=== PATIENT | female | born 1960 | race Caucasian/White ===

== ENCOUNTER 2017-11-23 14:46 | Observation (INO) ==
[2017-11-23] MEDS ORDERED: predniSONE 20 MG TABLET PO ONE (15:18)
[2017-11-23] MEDS ORDERED: Ipratropium/Albuterol Neb 3 ML IH ONE (15:18)
--- NOTE | 2017-11-23 15:20 | Emergency Department Note ---
Disposition Clinical Impression: Acute exacerbation of chronic obstructive airways disease Disposition: Admitted As Inpatient Condition: Good General Adult HPI - General Chief complaint: ED Shortness of Breath/Dyspnea Stated complaint: MACHELLE-COPD, abd pain, rash in mouth Time Seen by Provider: 11/23/17 15:18 Source: patient Limitations: no limitations - History of Present Illness Pain Scale: 7 - Related Data Home Medications Medication Instructions Recorded Confirmed Albuterol Sulfate [Ventolin Hfa] 2 puff IH Q4H PRN 08/02/17 11/23/17 Aspirin [Lo-Dose Aspirin EC] 81 mg PO DAILY 08/02/17 11/23/17 Atorvastatin [Lipitor] 40 mg PO HS 08/02/17 11/23/17 Benzonatate [Tessalon] 100 mg PO BID PRN 08/02/17 11/23/17 Bifidobacterium Infantis [Align] 4 mg PO DAILY 08/02/17 11/23/17 DULoxetine [Cymbalta] 30 mg PO BID 08/02/17 11/23/17 Fluticasone Propionate Nasal 2 spray NS DAILY 08/02/17 11/23/17 [Flonase] Ibuprofen [Advil] 200 mg PO Q6H PRN 08/02/17 11/23/17 Ipratropium [place] 2 spray NS BID 08/02/17 11/23/17 Ipratropium/Albuterol Neb [Duoneb] 3 ml IH Q6HR PRN 08/02/17 11/23/17 Losartan Potassium [Cozaar] 50 mg PO DAILY 08/02/17 11/23/17 Melatonin 10 mg PO HS 08/02/17 11/23/17 Montelukast [Singulair] 10 mg PO QPM 08/02/17 11/23/17 Omeprazole [PriLOSEC] 40 mg PO DAILY 08/02/17 11/23/17 Polyethylene Glycol 3350 [MiraLAX] 17 gm PO BID PRN 08/02/17 11/23/17 Amitriptyline [Elavil] 50 mg PO HS 11/23/17 11/23/17 Budesonide/Formoterol 160/4.5 2 puff IH BIDR 11/23/17 11/23/17 [Symbicort 160/4.5] Tiotropium [Spiriva] 18 mcg IH 0700 11/23/17 11/23/17 Allergies Allergy/AdvReac Type Severity Reaction Status Date / Time lisinopril AdvReac Cough Verified 11/23/17 15:03 Past Medical History - Past Medical History Medical history: Reports: asthma, COPD, GERD, hyperlipidemia, hypertension, other Surgical history: Reports: , hysterectomy, orthopedic, other Psychiatric history: Reports: depression - Social History Smoking Status: Current every day smoker Smokeless Tobacco Status: No Alcohol use: Reports: occasionally Drug use: Reports: none Physical Exam - General Limitations: no limitations General appearance: alert Course Vital Signs Temperature 98.5 F 11/23/17 15:03 Pulse Rate 118 11/23/17 15:03 Respiratory Rate 20 11/23/17 15:03 Blood Pressure 129/95 11/23/17 15:03 O2 Sat by Pulse Oximetry 96 11/23/17 15:03 Temperature 97.6 F 11/23/17 19:06 Pulse Rate 104 11/23/17 19:06 Respiratory Rate 20 11/23/17 19:06 Blood Pressure 132/83 11/23/17 19:06 O2 Sat by Pulse Oximetry 96 11/23/17 19:06 Oxygen Delivery Oxygen Delivery Non Rebreather Mask Medical Decision Making - Lab Data Result diagrams: 11/23/17 15:57 11/23/17 15:57 Lab Results 11/23/17 11/23/17 11/23/17 Range/Units 15:57 15:57 15:57 WBC 9.1 (4.3-11.1) K/mcL RBC 4.86 (3.82-4.97) M/mcL Hgb 15.1 (11.5-15.4) g/dL Hct 44.0 (35.3-44.9) % MCV 90.5 (83.0-100.0) fL MCH 31.1 (28.0-33.3) pg MCHC 34.3 (31.6-35.5) g/dL RDW 12.9 (11.5-14.5) % Plt Count 251 (140-400) K/mcL MPV 9.1 L (9.4-12.4) fL Immature Gran % 0.2 (0-4) % Seg Neutrophils % 58.5 % Lymphocytes % 33.7 % Monocytes % 6.3 % Eosinophils % 0.9 % Basophils % 0.4 % Neutrophils # 5.3 (1.6-8.9) K/mcL Lymphocytes # 3.1 (0.6-4.6) K/mcL Monocytes # 0.6 (0.0-1.3) K/mcL Eosinophils # 0.1 (0.0-0.6) K/mcL Basophils # 0.0 (0.0-0.2) K/mcL PT (9.4-12.1) Seconds INR Sodium 139 (136-145) mEq/L Potassium 3.0 L (3.5-5.1) mEq/L Chloride 108 H (98-107) mEq/L Carbon Dioxide 23 (23-29) mEq/L BUN 11 (6-20) mg/dL Creatinine 0.74 (0.60-1.20) mg/dL Est GFR ( Amer) > 60 (> 60) Est GFR (Non-Af Amer) > 60 (> 60) BUN/Creatinine Ratio 15 (6-26) Glucose 115 H (70-105) mg/dL Calculated Osmolality 288 (280-300) Calcium 9.1 (8.6-10.3) mg/dL Magnesium (1.6-2.6) mg/dL Total Bilirubin 0.5 (0.3-1.0) mg/dL AST 18 (13-39) Units/L ALT 19 (7-52) Units/L Alkaline Phosphatase 87 (34-104) Units/L Troponin I (< 0.04) ng/mL B-Natriuretic Peptide 12 (Less than 100) pg/mL Serum Total Protein 7.7 (6.4-8.9) g/dL Albumin 4.3 (3.5-5.7) g/dL Globulin 3.4 (2.4-3.5) g/dL Albumin/Globulin Ratio 1.3 (1.1-2.2) 11/23/17 11/23/17 11/23/17 Range/Units 15:57 15:57 15:57 WBC (4.3-11.1) K/mcL RBC (3.82-4.97) M/mcL Hgb (11.5-15.4) g/dL Hct (35.3-44.9) % MCV (83.0-100.0) fL MCH (28.0-33.3) pg MCHC (31.6-35.5) g/dL RDW (11.5-14.5) % Plt Count (140-400) K/mcL MPV (9.4-12.4) fL Immature Gran % (0-4) % Seg Neutrophils % % Lymphocytes % % Monocytes % % Eosinophils % % Basophils % % Neutrophils # (1.6-8.9) K/mcL Lymphocytes # (0.6-4.6) K/mcL Monocytes # (0.0-1.3) K/mcL Eosinophils # (0.0-0.6) K/mcL Basophils # (0.0-0.2) K/mcL PT 11.2 (9.4-12.1) Seconds INR 1.0 Sodium (136-145) mEq/L Potassium (3.5-5.1) mEq/L Chloride (98-107) mEq/L Carbon Dioxide (23-29) mEq/L BUN (6-20) mg/dL Creatinine (0.60-1.20) mg/dL Est GFR ( Amer) (> 60) Est GFR (Non-Af Amer) (> 60) BUN/Creatinine Ratio (6-26) Glucose (70-105) mg/dL Calculated Osmolality (280-300) Calcium (8.6-10.3) mg/dL Magnesium 1.9 (1.6-2.6) mg/dL Total Bilirubin (0.3-1.0) mg/dL AST (13-39) Units/L ALT (7-52) Units/L Alkaline Phosphatase (34-104) Units/L Troponin I < 0.03 (< 0.04) ng/mL B-Natriuretic Peptide (Less than 100) pg/mL Serum Total Protein (6.4-8.9) g/dL Albumin (3.5-5.7) g/dL Globulin (2.4-3.5) g/dL Albumin/Globulin Ratio (1.1-2.2) Attestation Statement - Attestation Attestation: I examined this patient and my medical decision-making was reviewed with the Resident Physician. I agree with the documented findings, disposition and treatment plan as described except to the extent set forth below. [id number] time provided Patient with a known history of COPD presents to emergency department with cough , wheezing, dyspnea. She appears mildly dyspneic at the time exam. Patient seen in conjunction with resident physician Dr. Whitten
--- NOTE | 2017-11-23 15:56 | Emergency Department Note ---
Disposition Clinical Impression: Acute exacerbation of chronic obstructive airways disease Disposition: Admitted As Inpatient Condition: Good Referrals: NONE,PCP [Primary Care Provider] - [facility] [Outside] Forms: ED Satisfaction Letter Time of Disposition: 17:05 General Adult HPI - General Chief complaint: ED Shortness of Breath/Dyspnea Stated complaint: MACHELLE-COPD, abd pain, rash in mouth Time Seen by Provider: 11/23/17 15:18 Source: patient Limitations: no limitations Nursing Notes Reviewed: Yes Vital Signs Reviewed: Yes - History of Present Illness HPI Narrative: Patient is a 57-year-old female with a past medical history of COPD that presents to the emergency department for cough and shortness of breath. She states that this started on November 19. She states that she originally had some diarrhea and vomiting but that has since resolved. She states that she is still having a cough that is productive with yellow thick sputum. She states that she try to see her primary care doctor was unable to be seen so she felt that she should come to the emergency department. She denies having anything like this before. She denies any chest pain at rest. States nothing seems to make her symptoms any better or worse. States that she feels overall weak and tired. She does state that she has some rib pain when she coughs but denies any pain at rest. She denies any chest pain. She describes her pain as lower ribs under the breasts and into the back bilaterally. Patient denies home oxygen use. Pain Scale: 7 - Related Data Home Medications Medication Instructions Recorded Confirmed Albuterol Sulfate [Ventolin Hfa] 2 puff IH Q4H PRN 08/02/17 08/02/17 Aspirin [Lo-Dose Aspirin EC] 81 mg PO DAILY 08/02/17 08/02/17 Atorvastatin [Lipitor] 40 mg PO HS 08/02/17 08/02/17 Benzonatate [Tessalon] 100 mg PO BID PRN 08/02/17 08/02/17 Bifidobacterium Infantis [Align] 4 mg PO DAILY 08/02/17 08/02/17 DULoxetine [Cymbalta] 30 mg PO BID 08/02/17 08/02/17 Fluticasone Propionate Nasal 2 spray NS DAILY 08/02/17 08/02/17 [Flonase] Ibuprofen [Advil] 200 mg PO Q6H PRN 08/02/17 08/02/17 Ipratropium [place] 2 spray NS BID 08/02/17 08/02/17 Ipratropium/Albuterol Neb [Duoneb] 3 ml IH Q6HR PRN 08/02/17 08/02/17 Losartan Potassium [Cozaar] 50 mg PO DAILY 08/02/17 08/02/17 Melatonin 10 mg PO HS 08/02/17 08/02/17 Montelukast [Singulair] 10 mg PO DAILY 08/02/17 08/02/17 Omeprazole [PriLOSEC] 40 mg PO DAILY 08/02/17 08/02/17 Polyethylene Glycol 3350 [MiraLAX] 17 gm PO BID PRN 08/02/17 08/02/17 Amitriptyline [Elavil] 50 mg PO HS 11/23/17 11/23/17 Budesonide/Formoterol 160/4.5 2 puff IH BIDR 11/23/17 11/23/17 [Symbicort 160/4.5] Tiotropium [Spiriva] 18 mcg IH 0700 11/23/17 11/23/17 Allergies Allergy/AdvReac Type Severity Reaction Status Date / Time lisinopril AdvReac Cough Verified 11/23/17 15:03 All systems ED: reviewed and negative except as stated. Constitutional: Reports: fever, weakness Cardiovascular: Reports: other (Bilateral rib pain) Respiratory: Reports: cough, dyspnea, wheezes Gastrointestinal: Reports: abdominal pain. Denies: nausea, vomiting, diarrhea Endocrine: Reports: fatigue Past Medical History - Past Medical History Medical history: Reports: asthma, COPD, GERD, hyperlipidemia, hypertension, other Surgical history: Reports: , hysterectomy, orthopedic, other Psychiatric history: Reports: depression - Social History Smoking Status: Current every day smoker Smokeless Tobacco Status: No Alcohol use: Reports: occasionally Drug use: Reports: none Physical Exam - General Limitations: no limitations General appearance: alert, in no apparent distress - Head Head exam: atraumatic, normocephalic - Eye Eye exam: Present: normal appearance, EOMI - Neck Neck exam: Present: normal inspection, full ROM, trachea midline - Chest Chest inspection: Present: other (Patient had tenderness over the lower ribs bilaterally on the anterior and posterior aspect) - Respiratory Respiratory exam: Present: wheezes (Wheezes bilaterally). Absent: respiratory distress - Cardiovascular Cardiovascular exam: Present: normal rhythm, tachycardia, normal heart sounds, + S1, +S2 - Abdominal Exam Abdominal exam: Present: soft, Non-Tender, normal bowel sounds - Extremities Exam Extremities exam: Present: normal inspection, full ROM, other (Did not appreciate any edema in the lower extremities). Absent: tenderness - Back Exam Back exam: Present: other (Patient has rib pain on the lower ribs posteriorly bilaterally) - Neurological Exam Neurological exam: Present: alert, oriented X3 - Psychiatric Psychiatric exam: Present: normal affect, normal mood - Skin Skin exam: Present: warm, dry, intact Course Vital Signs Temperature 98.5 F 11/23/17 15:03 Pulse Rate 118 11/23/17 15:03 Respiratory Rate 20 11/23/17 15:03 Blood Pressure 129/95 11/23/17 15:03 O2 Sat by Pulse Oximetry 96 11/23/17 15:03 Temperature 98.5 F 11/23/17 15:03 Pulse Rate 67 11/23/17 16:38 Respiratory Rate 18 11/23/17 16:38 Blood Pressure 135/93 11/23/17 16:38 O2 Sat by Pulse Oximetry 93 11/23/17 16:38 Oxygen Delivery Oxygen Delivery Nasal Cannula Medical Decision Making - MDM Narrative Medical decision making narrative: Due to the patient having a history of COPD with shortness of breath and cough we have given the patient a DuoNeb treatment with oral steroids. We will order a CBC, CMP, troponin, BNP, EKG, chest x-ray and influenza to evaluate this patient. Patient had a hypokalemia measuring 3.0. The remainder of her laboratory tests were unremarkable. Patient's influenza swabs were negative. We will ambulate the patient and see how she tolerates. Patient maintaining her oxygen saturation after ambulation around the department. However she became somewhat short of breath and exhausted. After discussing it with the patient she would feel more comfortable being admitted to the hospital. He states that she is not comfortable going home. Chest x-ray showed possible bronchitis and reactive airway disease per radiology read there is no evidence of infiltrate per radiology. The patient will be admitted to the hospital. I called and spoke with the hospitalist and they have accepted the patient to their service. The patient will be admitted to the hospital at this time. - Lab Data Lab results reviewed: Yes I reviewed the patient's lab results. Result diagrams: 11/23/17 15:57 11/23/17 15:57 Lab Results 11/23/17 11/23/17 11/23/17 Range/Units 15:57 15:57 15:57 WBC 9.1 (4.3-11.1) K/mcL RBC 4.86 (3.82-4.97) M/mcL Hgb 15.1 (11.5-15.4) g/dL Hct 44.0 (35.3-44.9) % MCV 90.5 (83.0-100.0) fL MCH 31.1 (28.0-33.3) pg MCHC 34.3 (31.6-35.5) g/dL RDW 12.9 (11.5-14.5) % Plt Count 251 (140-400) K/mcL MPV 9.1 L (9.4-12.4) fL Immature Gran % 0.2 (0-4) % Seg Neutrophils % 58.5 % Lymphocytes % 33.7 % Monocytes % 6.3 % Eosinophils % 0.9 % Basophils % 0.4 % Neutrophils # 5.3 (1.6-8.9) K/mcL Lymphocytes # 3.1 (0.6-4.6) K/mcL Monocytes # 0.6 (0.0-1.3) K/mcL Eosinophils # 0.1 (0.0-0.6) K/mcL Basophils # 0.0 (0.0-0.2) K/mcL PT (9.4-12.1) Seconds INR Sodium 139 (136-145) mEq/L Potassium 3.0 L (3.5-5.1) mEq/L Chloride 108 H (98-107) mEq/L Carbon Dioxide 23 (23-29) mEq/L BUN 11 (6-20) mg/dL Creatinine 0.74 (0.60-1.20) mg/dL Est GFR ( Amer) > 60 (> 60) Est GFR (Non-Af Amer) > 60 (> 60) BUN/Creatinine Ratio 15 (6-26) Glucose 115 H (70-105) mg/dL Calculated Osmolality 288 (280-300) Calcium 9.1 (8.6-10.3) mg/dL Magnesium (1.6-2.6) mg/dL Total Bilirubin 0.5 (0.3-1.0) mg/dL AST 18 (13-39) Units/L ALT 19 (7-52) Units/L Alkaline Phosphatase 87 (34-104) Units/L Troponin I (< 0.04) ng/mL B-Natriuretic Peptide 12 (Less than 100) pg/mL Serum Total Protein 7.7 (6.4-8.9) g/dL Albumin 4.3 (3.5-5.7) g/dL Globulin 3.4 (2.4-3.5) g/dL Albumin/Globulin Ratio 1.3 (1.1-2.2) 11/23/17 11/23/17 11/23/17 Range/Units 15:57 15:57 15:57 WBC (4.3-11.1) K/mcL RBC (3.82-4.97) M/mcL Hgb (11.5-15.4) g/dL Hct (35.3-44.9) % MCV (83.0-100.0) fL MCH (28.0-33.3) pg MCHC (31.6-35.5) g/dL RDW (11.5-14.5) % Plt Count (140-400) K/mcL MPV (9.4-12.4) fL Immature Gran % (0-4) % Seg Neutrophils % % Lymphocytes % % Monocytes % % Eosinophils % % Basophils % % Neutrophils # (1.6-8.9) K/mcL Lymphocytes # (0.6-4.6) K/mcL Monocytes # (0.0-1.3) K/mcL Eosinophils # (0.0-0.6) K/mcL Basophils # (0.0-0.2) K/mcL PT 11.2 (9.4-12.1) Seconds INR 1.0 Sodium (136-145) mEq/L Potassium (3.5-5.1) mEq/L Chloride (98-107) mEq/L Carbon Dioxide (23-29) mEq/L BUN (6-20) mg/dL Creatinine (0.60-1.20) mg/dL Est GFR ( Amer) (> 60) Est GFR (Non-Af Amer) (> 60) BUN/Creatinine Ratio (6-26) Glucose (70-105) mg/dL Calculated Osmolality (280-300) Calcium (8.6-10.3) mg/dL Magnesium 1.9 (1.6-2.6) mg/dL Total Bilirubin (0.3-1.0) mg/dL AST (13-39) Units/L ALT (7-52) Units/L Alkaline Phosphatase (34-104) Units/L Troponin I < 0.03 (< 0.04) ng/mL B-Natriuretic Peptide (Less than 100) pg/mL Serum Total Protein (6.4-8.9) g/dL Albumin (3.5-5.7) g/dL Globulin (2.4-3.5) g/dL Albumin/Globulin Ratio (1.1-2.2) - Radiology Data Radiology results reviewed: Yes I reviewed the patient's radiology results. Chest X-Ray 11/23/17 15:52 IMPRESSION: Suggestion of bronchial wall thickening which raise the possibility of bronchitis or reactive airways disease. No acute focal infiltrate is found. D/ / Douglas Albright MD / Douglas Albright MD Interpreting Provider: Douglas Albright MD - EKG Data EKG #1 EKG attestation: Yes I reviewed and interpreted this EKG. EKG results narrative: EKG showed sinus tachycardia at a rate of 104 bpm, [place] interval of 160, QRS duration of 94, QTC of 427 with a normal axis. No STEMI is noted on this EKG
[2017-11-23 16:16] LABS: Basophils % 0.4 %; Eosinophils # 0.1 K/mcL (0.0-0.6); Eosinophils % 0.9 %; Hemoglobin 15.1 g/dL (11.5-15.4); Immature Granulocytes % 0.2 % (0-4); Lymphocytes # 3.1 K/mcL (0.6-4.6); Lymphocytes % 33.7 %; Mean Corpuscular HGB Conc 34.3 g/dL (31.6-35.5); Mean Corpuscular Hemoglobin 31.1 pg (28.0-33.3); Mean Corpuscular Volume 90.5 fL (83.0-100.0); Mean Platelet Volume 9.1 fL (9.4-12.4); Monocytes # 0.6 K/mcL (0.0-1.3); Monocytes % 6.3 %; Neutrophils # 5.3 K/mcL (1.6-8.9); Platelet Count 251 K/mcL (140-400); Red Blood Count 4.86 M/mcL (3.82-4.97); Red Cell Distribution Width 12.9 % (11.5-14.5); Segmented Neutrophils % 58.5 %
[2017-11-23 16:24] LABS: Prothrombin Time 11.2 Seconds (9.4-12.1)
[2017-11-23 16:31] LABS: Alanine Aminotransferase 19 Units/L (7-52); Albumin 4.3 g/dL (3.5-5.7); Albumin/Globulin Ratio 1.3 (1.1-2.2); Alkaline Phosphatase 87 Units/L (34-104); Aspartate Amino Transferase 18 Units/L (13-39); BUN/Creatinine Ratio 15 (6-26); Bilirubin,Total 0.5 mg/dL (0.3-1.0); Blood Urea Nitrogen 11 mg/dL (6-20); Calcium 9.1 mg/dL (8.6-10.3); Carbon Dioxide 23 mEq/L (23-29); Chloride 108 mEq/L (98-107); Globulin 3.4 g/dL (2.4-3.5); Glucose 115 mg/dL (70-105); Osmolality,Calculated 288 (280-300); Sodium 139 mEq/L (136-145); Total Protein 7.7 g/dL (6.4-8.9); eGFR For African Americans > 60 (> 60); eGFR For Non-African Americans > 60 (> 60)
[2017-11-23] MEDS ORDERED: Naloxone 0.4 MG/ML INJ IVP PRN (19:42)
[2017-11-23] MEDS ORDERED: Ondansetron 4 MG/2 ML VIAL IVP PRN (19:42)
--- NOTE | 2017-11-23 19:59 | Internal Med History&Physical ---
<Jason Spears - Last Filed: 11/23/17 20:40> Date of Encounter: 11/23/17 Time of Encounter: 19:00 Assessment and Plan (1) Acute exacerbation of chronic obstructive airways disease Current visit: Yes Status: Acute Acute exacerbation of COPD. Pt. reports sx began 11/19/17. SOB/dyspnea/cough. COPD exacerbation complicated by bronchitis and possible viral infection. Solu- Medrol 40 mg Q8. Supplemental O2 w/titration and SpO2 monitoring. Tessalon 100 mg TID for cough. Sputum culture. DuoNebs Q6 scheduled. Will continue pts. inhalers PRN. Continuous cardiac telemetry d/t current tachycardia. Bronchitis being addressed w/IVPB azithromycin. RVP ordered. Pt. discussed w/Dr. Ledesma who is in agreement w/plan of care. Pt. is high risk for respiratory and/or cardiac distress based on current exacerbation of COPD, tachycardia, hx, and risk factors of HTN, HLD, and current tobacco abuse. Observation. (2) Mouth sores Current visit: Yes Status: Acute Acute mouth sores located on sides of tongue. Pt. also reports sore throat. Sx since 11/19/17. Sx most likely d/t viral pharyngitis. Respiratory viral panel ordered. Magic mouthwash ordered. (3) Bronchitis Current visit: Yes Status: Acute Acute bronchitis superimposed on COPD exacerbation. 1-View CXR today suggestive of bronchial wall thickening raises the possibility of bronchitis or reactive airways disease. No acute focal infiltrate found. Azithromycin 500 mg daily for infection coverage. (4) Hypokalemia Current visit: Yes Status: Acute Acute hypokalemia w/potassium of 3.0 on admission. 40 mEq PO ordered in ED. Will f/u w/20 mEq IVPB and monitor potassium status in a.m. labs. Continuous cardiac telemetry d/t current hypokalemia and tachycardia. (5) GERD (gastroesophageal reflux disease) Current visit: Yes Status: Chronic Hx of chronic GERD. IVP Zofran 4 mg Q8 for N/V. Continue pts. Prilosec PO. Qualifiers: Esophagitis presence: esophagitis presence not specified Qualified Code(s) : K21.9 - Gastro-esophageal reflux disease without esophagitis (6) HLD (hyperlipidemia) Current visit: Yes Status: Chronic Hx of chronic HLD. Lipid panel in a.m. labs. Continue pts. Lipitor. Qualifiers: Hyperlipidemia type: pure hypercholesterolemia Qualified Code(s): E78.00 - Pure hypercholesterolemia, unspecified; E78.0 - Pure hypercholesterolemia (7) HTN (hypertension) Current visit: Yes Status: Chronic Hx of chronic HTN. Monitor pt. and VS. Continue pts. Cozaar. Qualifiers: Hypertension type: essential hypertension Qualified Code(s): I10 - Essential (primary) hypertension (8) Depression Current visit: Yes Status: Chronic Hx of chronic depression. Continue pts. Elavil and Cymbalta. Qualifiers: Depression Type: unspecified Qualified Code(s): F32.9 - Major depressive disorder, single episode, unspecified (9) DVT prophylaxis Current visit: Yes Status: Acute Lovenox 40 mg 0600 for DVT prophylaxis. Monitor pt. for signs of bleeding. Internal Medicine - H&P: HPI Chief complaint: SOB/Dyspnea Admitted From: Emergency Dept Plans for Post Hospital Care: Home History of present illness: Ms. Connors is a 57 year old female with medical hx of asthma, COPD, GERD, HLD , and HTN presents from the ED with chief complaint shortness of breath and dyspnea since New Year's Day. Patient also reports cough with tannish/brown sputum and headache over the same time period. Patient reports feeling of ribs crushing which worsens with cough. Patient also had initial vomiting and diarrhea. Patient reports she was unable to see her PCP so came to the emergency department. States there are no alleviating or aggravating factors. Patient reports weakness, shortness of breath, dyspnea, cough but denies recent illness, fever, chills, nausea, chest pain, palpitations, changes in vision, unusual bleeding, numbness, tingling, lightheadedness, pre-syncope, or syncope. Past Med Surg Social Fam HX - Past Medical History Source: patient, old records reviewed Medical history: asthma, COPD, GERD, hyperlipidemia, hypertension, other Psychiatric history: depression - Past Surgical History Surgical History: , hysterectomy, orthopedic, other (Back surgeries), other (Surgery on jaw) - Social History Smoking Status: Current every day smoker Packs per day: 1 PPD - Reports she is not willing to quit d/t stress Smokeless Tobacco Status: No Alcohol use: occasionally Drug use: none Current living situation: Home Activity Level: Independent ambulation Recent Out of Country Travel Within the Last 8 Weeks: No Exposure or Possible Exposure to Illness During Travel: No - Family History Father Race: Family Member Ethnicity: Non- Living Status: Age at : 68 Hx Family Cardiac Disorders: Yes (CAD, Heart murmur) Hx Family Neuromuscular Disorders: Yes (Lashon Gehrig's disease) Mother Race: Family Member Ethnicity: Non- Living Status: Age at : 74 Cause of : CO Hx Family Cardiac Disorders: Yes (CO, Valve replacement) Hx Family Endocrine Disorder: Yes (DM) Brother Race: Family Member Ethnicity: Non- Living Status: Still Living Hx Family Endocrine Disorder: Yes (DM) Internal Medicine - H&P: Meds Albuterol Sulfate [Ventolin Hfa] 2 puff IH Q4H PRN 08/02/17 [History] Aspirin [Lo-Dose Aspirin EC] 81 mg PO DAILY 08/02/17 [History] Atorvastatin [Lipitor] 40 mg PO HS 08/02/17 [History] Benzonatate [Tessalon] 100 mg PO BID PRN 08/02/17 [History] Bifidobacterium Infantis [Align] 4 mg PO DAILY 08/02/17 [History] DULoxetine [Cymbalta] 30 mg PO BID 08/02/17 [History] Fluticasone Propionate Nasal [Flonase] 2 spray NS DAILY 08/02/17 [History] Ibuprofen [Advil] 200 mg PO Q6H PRN 08/02/17 [History] Ipratropium [place] 2 spray NS BID 08/02/17 [History] Ipratropium/Albuterol Neb [Duoneb] 3 ml IH Q6HR PRN 08/02/17 [History] Losartan Potassium [Cozaar] 50 mg PO DAILY 08/02/17 [History] Melatonin 10 mg PO HS 08/02/17 [History] Montelukast [Singulair] 10 mg PO QPM 08/02/17 [History] Omeprazole [PriLOSEC] 40 mg PO DAILY 08/02/17 [History] Polyethylene Glycol 3350 [MiraLAX] 17 gm PO BID PRN 08/02/17 [History] Amitriptyline [Elavil] 50 mg PO HS 11/23/17 [History] Budesonide/Formoterol 160/4.5 [Symbicort 160/4.5] 2 puff IH BIDR 11/23/17 [ History] Tiotropium [Spiriva] 18 mcg IH 0700 11/23/17 [History] 3 Allergy/AdvReac Type Severity Reaction Status Date / Time lisinopril AdvReac Cough Verified 11/23/17 15:03 All Systems PM: A 10-system review of systems was performed and is negative for pertinent findings except as documented above in the HPI. - Constitutional Constitutional: as per HPI, weakness, no chills, no fever(s), no night sweats - EENT Eyes: no change in vision, no discharge, no pain, no photophobia Ears: no ear discharge, no ear pain, no tinnitus Nose, mouth and throat: no dysphagia, no nasal discharge, no neck pain, no sore throat - Breasts Breasts: as per HPI - Cardiovascular Cardiovascular ROS IM: as per HPI, dyspnea, dyspnea on exertion, no chest pain, no diaphoresis, no lightheadedness, no palpitations, no syncope - Respiratory Respiratory: as per HPI, cough, dyspnea, dyspnea on exertion, change in phlegm color, pain with cough, no wheezing, no excessive phlegm production - Gastrointestinal Gastrointestinal: as per HPI, no abdominal pain, no diarrhea, no hematemesis, no hematochezia, no melena, no nausea, no vomiting - Genitourinary Genitourinary: no change in urinary stream, no dysuria, no flank pain, no hematuria Menstruation: as per HPI, post hysterectomy - Musculoskeletal Musculoskeletal ROS IM: no numbness, no tingling - Integumentary Integumentary IM: no rash, no unusual bruising - Neurological Neurological ROS: no confusion, no convulsions, no focal weakness, no numbness, no tingling, no tremor(s) - Psychiatric Psychiatric: as per HPI, depression - Endocrine Endocrine IM: as per HPI - Hematologic/Lymphatic Hematologic/Lymphatic: no easy bruising - Allergic/Immunologic Allergic/Immunologic: as per HPI - Constitutional Vitals: Temp Pulse Resp BP Pulse Ox 97.6 F 104 20 132/83 96 11/23/17 19:06 11/23/17 19:06 11/23/17 19:06 11/23/17 19:06 11/23/17 19:06 General appearance: Present: cooperative, mild distress (Respiratory), A&O X 3, pleasant, obese, answers questions appropriately - Head Head exam: Present: atraumatic, normocephalic - Eye Eye exam: Present: PERRL, conjuntiva pink, sclera anicteric Pupils: Present: PERRL - ENT ENT exam: Present: normal exam - Neck Neck exam general surgery: Present: supple, trachea midline. Absent: lymphadenopathy - Respiratory Respiratory exam: Present: accessory muscle use, decreased breath sounds - Cardiovascular Cardiovascular exam: Present: +S1, +S2, tachycardia. Absent: diastolic murmur, gallop, rubs, systolic murmur - GI/Abdominal GI/Abdominal exam: Present: normal bowel sounds, soft, no peritoneal signs. Absent: distended, tenderness - Rectal Rectal exam: Present: deferred - Additional comments: exam deferred. - Extremities Exam Extremities exam: Present: warm, radial pulses palpable and symmetrical. Absent : calf tenderness, cyanotic, pedal edema - Back Exam Back exam: Present: normal inspection - Neurological Exam Neurological exam: Present: CN II-XII intact, oriented X3, no focal deficits. Absent: pronater drift, facial droop, speech deficit - Psychiatric Psychiatric exam: Present: anxious - Skin Skin exam: Present: dry, intact Internal Med - H&P Results - Labs CBC & Chem 7: 11/23/17 15:57 11/23/17 15:57 - EKG Data EKG shows normal: sinus rhythm Rate: tachycardia - EKG Data Prior EKG available for review: no EKG comments: 11/23/17 20:07 EKG dated 11/23/17 shows sinus tachycardia with short MI interval, incomplete right bundle branch block, and nonspecific T-wave abnormality. - Diagnostic Studies Chest x-ray Additional comments: Impressions Chest X-Ray 11/23/17 15:52 IMPRESSION: Suggestion of bronchial wall thickening which raise the possibility of bronchitis or reactive airways disease. No acute focal infiltrate is found. D/ / Douglas Albright MD / Douglas Albright MD Interpreting Provider: Douglas Albright MD <Mega Morton H - Last Filed: 11/23/17 20:45> Date of Encounter: 11/23/17 Internal Medicine - H&P: HPI History of present illness: Ms. Connors is a 57 year old female All Systems PM: A 10-system review of systems was performed and is negative for pertinent findings except as documented above in the HPI. - Constitutional Vitals: Temp Pulse Resp BP Pulse Ox 97.6 F 104 20 132/83 96 11/23/17 19:06 11/23/17 19:06 11/23/17 19:06 11/23/17 19:06 11/23/17 19:06 Internal Med - H&P Results - Labs CBC & Chem 7: 11/23/17 15:57 11/23/17 15:57 - Attending Attestation Acute on chronic respiratory failure due to acute COPD exacerbation secondary to acute bacterial bronchitis Continue azithromycin and Solu-Medrol, duo nebs and oxygen therapy Time spent on this admission, 40 minutes I have personally performed a face to face evaluation on this patient. I have reviewed and agree with the care plan. History and Exam by me shows:
[2017-11-23] MEDS ORDERED: Benzonatate 100 MG CAPSULE PO PRN (20:17)
[2017-11-23] MEDS: Azithromycin 500 MG in D5% in Water 250 ML IVPB SCH (21:14)
[2017-11-23] MEDS: Melatonin 3 MG TABLET PO SCH (21:14)
[2017-11-23] MEDS: Magic Mouthwash 10 ML UD Cup PO SCH (21:15)
[2017-11-23] MEDS: ATROVENT IH SCH (21:19)
[2017-11-23] MEDS: Nicotine 14 MG PATCH.TD24 TD SCH (21:53)
[2017-11-23] MEDS: Ipratropium/Albuterol Neb 3 ML IH SCH (22:33)
[2017-11-23] MEDS: Budesonide/Formoterol 160/4.5 MDI IH SCH (22:34)
[2017-11-23] MEDS: MethylPREDNISolone 40 MG/ML VIAL IVP SCH (23:54)
[2017-11-24] MEDS ORDERED: Acetaminophen 325 MG TABLET PO PRN (00:05)
[2017-11-24] MEDS ORDERED: *HR* Morphine 2 MG/ML SYRINGE IVP PRN (00:05)
[2017-11-24 00:31] LABS: ABG Base Excess -3 mEq/L (-2 to 3); ABG HCO3 21 mEq/L (21-27); ABG Oxygen Saturation 83 % (95-98); ABG PCO2 35 mmHg (35-45); ABG PH 7.39 pH Units (7.32-7.45); ABG PO2 47 mmHg (85-104); ABG TCO2 22 mEq/L (20-26); Blood Gas Modality NCPAP
[2017-11-24 00:51] LABS: ABG Base Excess -4 mEq/L (-2 to 3); ABG HCO3 20 mEq/L (21-27); ABG Oxygen Saturation 96 % (95-98); ABG PCO2 34 mmHg (35-45); ABG PH 7.38 pH Units (7.32-7.45); ABG PO2 79 mmHg (85-104); ABG TCO2 21 mEq/L (20-26); Blood Gas Modality NCPAP
[2017-11-24] MEDS: *HR* Morphine 2 MG/ML SYRINGE IVP PRN ×4 (02:33→20:49)
[2017-11-24] MEDS: Ipratropium/Albuterol Neb 3 ML IH SCH ×4 (03:57→21:21)
[2017-11-24] MEDS: *HR* Enoxaparin 40 MG/0.4 ML SYRINGE SQ SCH (05:57)
[2017-11-24 06:52] LABS: Basophils % 0.1 %; Hematocrit 41.6 % (35.3-44.9); Hemoglobin 13.9 g/dL (11.5-15.4); Immature Granulocytes % 0.4 % (0-4); Lymphocytes # 1.2 K/mcL (0.6-4.6); Mean Corpuscular HGB Conc 33.4 g/dL (31.6-35.5); Mean Corpuscular Hemoglobin 30.9 pg (28.0-33.3); Mean Corpuscular Volume 92.4 fL (83.0-100.0); Mean Platelet Volume 8.9 fL (9.4-12.4); Monocytes # 0.2 K/mcL (0.0-1.3); Monocytes % 2.7 %; Neutrophils # 6.8 K/mcL (1.6-8.9); Platelet Count 292 K/mcL (140-400); Red Cell Distribution Width 12.7 % (11.5-14.5); Segmented Neutrophils % 81.8 %
[2017-11-24] MEDS: Fluticasone Propionate Nasal 50 MCG/SPRAY BOTTLE NS SCH (07:41)
[2017-11-24] MEDS: Magic Mouthwash 10 ML UD Cup PO SCH ×3 (07:41→17:05)
[2017-11-24] MEDS: MethylPREDNISolone 40 MG/ML VIAL IVP SCH ×3 (07:41→23:30)
[2017-11-24] MEDS: Aspirin Enteric Coated 81 MG Tablet PO SCH (07:42)
[2017-11-24] MEDS: ATROVENT IH SCH ×2 (07:42→20:43)
[2017-11-24] MEDS: (Bifidobacterium Infantis [Align] 4 MG) PO SCH (07:42)
[2017-11-24] MEDS: Nicotine 14 MG PATCH.TD24 TD SCH (07:42)
[2017-11-24 08:27] LABS: Potassium 4.3 mEq/L (3.5-5.1)
[2017-11-24 10:09] LABS: Alanine Aminotransferase 18 Units/L (7-52); Albumin 4.2 g/dL (3.5-5.7); Albumin/Globulin Ratio 1.4 (1.1-2.2); Alkaline Phosphatase 75 Units/L (34-104); Aspartate Amino Transferase 14 Units/L (13-39); BUN/Creatinine Ratio 25 (6-26); Bilirubin,Total 0.4 mg/dL (0.3-1.0); Blood Urea Nitrogen 15 mg/dL (6-20); Calcium 9.1 mg/dL (8.6-10.3); Carbon Dioxide 20 mEq/L (23-29); Chloride 108 mEq/L (98-107); Chol/HDL Ratio 5.4 (0-4.9); Cholesterol 243 mg/dL (< 200); Glucose 158 mg/dL (70-105); HDL Cholesterol 45 mg/dL (40-59); LDL Cholesterol,Calculated 177 mg/dL (0-99); Osmolality,Calculated 296 (280-300); Sodium 141 mEq/L (136-145); Total Protein 7.2 g/dL (6.4-8.9); Triglycerides 103 mg/dL (< 150); eGFR For African Americans > 60 (> 60); eGFR For Non-African Americans > 60 (> 60)
[2017-11-24] MEDS: Tiotropium 18 MCG inhalation IH SCH (11:13)
[2017-11-24] MEDS: Budesonide/Formoterol 160/4.5 MDI IH SCH ×2 (11:13→21:21)
--- NOTE | 2017-11-24 12:17 | Internal Med Progress Note ---
Date of Encounter: 11/24/17 Time of Encounter: 11:45 - Assessment and plan (1) Acute exacerbation of chronic obstructive airways disease Current Visit: Yes Status: Acute Assessment and plan: Continue with IV Solu-Medrol. No weaning today. Wean off oxygen as tolerated. Continue with nebulizer treatment. The patient is also on azithromycin. This is likely exacerbated by the bronchitis. (2) HLD (hyperlipidemia) Current Visit: Yes Status: Chronic Assessment and plan: Continue atorvastatin. Qualifiers: Hyperlipidemia type: pure hypercholesterolemia Qualified Code(s): E78.00 - Pure hypercholesterolemia, unspecified; E78.0 - Pure hypercholesterolemia (3) HTN (hypertension) Current Visit: Yes Status: Chronic Assessment and plan: Continue losartan. Qualifiers: Hypertension type: essential hypertension Qualified Code(s): I10 - Essential (primary) hypertension (4) Depression Current Visit: Yes Status: Chronic Assessment and plan: Continue home antidepressants. Qualifiers: Depression Type: unspecified Qualified Code(s): F32.9 - Major depressive disorder, single episode, unspecified (5) DVT prophylaxis Current Visit: Yes Status: Acute Assessment and plan: Lovenox - Subjective Interval history: Patient was seen and examined. She is off oxygen this morning. She is somewhat tachycardic. She says her cough is somewhat improved. She does not feel back to baseline yet. She has been afebrile. - Constitutional Vitals: Temp Pulse Resp BP Pulse Ox 98.3 F 103 16 115/71 985 11/24/17 06:57 11/24/17 06:57 11/24/17 06:57 11/24/17 06:57 11/24/17 06:57 General appearance: Present: cooperative, mild distress (Respiratory), A&O X 3, pleasant, obese, answers questions appropriately Exam: GEN: NAD CVS: RRR. S1, S2, No m/r/g RESP: Diminished at the bases with posterior lung wheezes that are scattered. ABD: Soft, NT, ND, +BS EXT: No edema. 2+ DP. No rashes NEURO: Nonfocal Internal Medicine: Result - Labs CBC & Chem 7: 11/24/17 06:43 11/24/17 06:43 Labs: Short CBC 11/24/17 Range/Units 06:43 WBC 8.3 (4.3-11.1) K/mcL Hgb 13.9 (11.5-15.4) g/dL Hct 41.6 (35.3-44.9) % Plt Count 292 (140-400) K/mcL Neutrophils # 6.8 (1.6-8.9) K/mcL BMP 11/24/17 06:43 Sodium 141 Potassium 4.3 D Chloride 108 H Carbon Dioxide 20 L BUN 15 Creatinine 0.60 Glucose 158 H Calcium 9.1 Liver Function 11/24/17 Range/Units 06:43 Total Bilirubin 0.4 (0.3-1.0) mg/dL AST 14 (13-39) Units/L ALT 18 (7-52) Units/L Alkaline Phosphatase 75 (34-104) Units/L Albumin 4.2 (3.5-5.7) g/dL - ABG Interpretation ABG results: ABG ABG pH 7.38 pH Units (7.32-7.45) 11/24/17 00:45 ABG pCO2 34 mmHg (35-45) L 11/24/17 00:45 ABG pO2 79 mmHg (85-104) L 11/24/17 00:45 ABG O2 Saturation 96 % (95-98) 11/24/17 00:45 PT/INR, D-dimer PT 11.2 Seconds (9.4-12.1) 11/23/17 15:57 Consult Discharge Plan - Plan Referrals: NONE,PCP [Primary Care Provider] -
[2017-11-24] MEDS: Melatonin 3 MG TABLET PO SCH (20:45)
[2017-11-24] MEDS: Azithromycin 500 MG in D5% in Water 250 ML IVPB SCH (20:46)
[2017-11-25] MEDS: Ipratropium/Albuterol Neb 3 ML IH SCH ×5 (04:05→21:58)
[2017-11-25] MEDS: *HR* Morphine 2 MG/ML SYRINGE IVP PRN ×3 (05:12→22:46)
[2017-11-25] MEDS: *HR* Enoxaparin 40 MG/0.4 ML SYRINGE SQ SCH (05:12)
[2017-11-25 06:37] LABS: Alanine Aminotransferase 20 Units/L (7-52); Albumin 4.2 g/dL (3.5-5.7); Albumin/Globulin Ratio 1.4 (1.1-2.2); Alkaline Phosphatase 71 Units/L (34-104); Aspartate Amino Transferase 14 Units/L (13-39); BUN/Creatinine Ratio 31 (6-26); Bilirubin,Total 0.3 mg/dL (0.3-1.0); Blood Urea Nitrogen 23 mg/dL (6-20); Calcium 9.1 mg/dL (8.6-10.3); Carbon Dioxide 23 mEq/L (23-29); Chloride 104 mEq/L (98-107); Globulin 2.9 g/dL (2.4-3.5); Glucose 157 mg/dL (70-105); Osmolality,Calculated 293 (280-300); Potassium 4.1 mEq/L (3.5-5.1); Sodium 138 mEq/L (136-145); Total Protein 7.1 g/dL (6.4-8.9); eGFR For African Americans > 60 (> 60); eGFR For Non-African Americans > 60 (> 60)
[2017-11-25 06:42] LABS: Basophils % 0.2 %; Hematocrit 39.8 % (35.3-44.9); Hemoglobin 13.2 g/dL (11.5-15.4); Immature Granulocytes % 0.8 % (0-4); Lymphocytes # 1.7 K/mcL (0.6-4.6); Lymphocytes % 7.3 %; Mean Corpuscular HGB Conc 33.2 g/dL (31.6-35.5); Mean Corpuscular Hemoglobin 31.1 pg (28.0-33.3); Mean Corpuscular Volume 93.9 fL (83.0-100.0); Mean Platelet Volume 9.5 fL (9.4-12.4); Monocytes % 2.4 %; Neutrophils # 20.2 K/mcL (1.6-8.9); Platelet Count 347 K/mcL (140-400); Red Blood Count 4.24 M/mcL (3.82-4.97); Red Cell Distribution Width 12.9 % (11.5-14.5); Segmented Neutrophils % 89.3 %
[2017-11-25 06:43] LABS: Basophils # 0.1 K/mcL (0.0-0.2); Monocytes # 0.5 K/mcL (0.0-1.3)
[2017-11-25] MEDS: Magic Mouthwash 10 ML UD Cup PO SCH ×3 (08:26→16:56)
[2017-11-25] MEDS: MethylPREDNISolone 40 MG/ML VIAL IVP SCH ×3 (08:27→22:33)
[2017-11-25] MEDS: Aspirin Enteric Coated 81 MG Tablet PO SCH (08:27)
--- NOTE | 2017-11-25 10:56 | Internal Med Progress Note ---
Date of Encounter: 11/25/17 Time of Encounter: 10:00 - Assessment and plan (1) Acute exacerbation of chronic obstructive airways disease Current Visit: Yes Status: Acute Assessment and plan: Continue with IV Solu-Medrol. Given the tachycardia and continued need for oxygen with inability to wean down I will check a CT of chest to rule out PE. Wean off oxygen as tolerated. Continue with nebulizer treatment. The patient is also on azithromycin. Elevated white count is likely secondary to steroids. (2) HLD (hyperlipidemia) Current Visit: Yes Status: Chronic Assessment and plan: Continue atorvastatin. Qualifiers: Hyperlipidemia type: pure hypercholesterolemia Qualified Code(s): E78.00 - Pure hypercholesterolemia, unspecified; E78.0 - Pure hypercholesterolemia (3) HTN (hypertension) Current Visit: Yes Status: Chronic Assessment and plan: Continue losartan. Qualifiers: Hypertension type: essential hypertension Qualified Code(s): I10 - Essential (primary) hypertension (4) Depression Current Visit: Yes Status: Chronic Assessment and plan: Continue home antidepressants. Qualifiers: Depression Type: unspecified Qualified Code(s): F32.9 - Major depressive disorder, single episode, unspecified (5) DVT prophylaxis Current Visit: Yes Status: Acute Assessment and plan: Lovenox - Subjective Interval history: Patient was seen and examined. She continues to require oxygen. She is on 3 L. She is tachycardic in the low 100s. She says she feels better however. She has been afebrile. - Constitutional Vitals: Temp Pulse Resp BP Pulse Ox 97.7 F 105 18 144/86 94 11/25/17 06:55 11/25/17 06:55 11/25/17 06:55 11/25/17 06:55 11/25/17 06:55 General appearance: Present: cooperative, mild distress (Respiratory), A&O X 3, pleasant, obese, answers questions appropriately Exam: GEN: NAD CVS: RRR. S1, S2, No m/r/g RESP: Diminished at the bases with posterior lung wheezes that are scattered. ABD: Soft, NT, ND, +BS EXT: No edema. 2+ DP. No rashes NEURO: Nonfocal Internal Medicine: Result - Labs CBC & Chem 7: 11/25/17 04:53 11/25/17 04:53 Labs: Short CBC 11/25/17 Range/Units 04:53 WBC 22.6 H D (4.3-11.1) K/mcL Hgb 13.2 (11.5-15.4) g/dL Hct 39.8 (35.3-44.9) % Plt Count 347 (140-400) K/mcL Neutrophils # 20.2 H (1.6-8.9) K/mcL BMP 11/25/17 04:53 Sodium 138 Potassium 4.1 Chloride 104 Carbon Dioxide 23 BUN 23 H Creatinine 0.74 Glucose 157 H Calcium 9.1 Liver Function 11/25/17 Range/Units 04:53 Total Bilirubin 0.3 (0.3-1.0) mg/dL AST 14 (13-39) Units/L ALT 20 (7-52) Units/L Alkaline Phosphatase 71 (34-104) Units/L Albumin 4.2 (3.5-5.7) g/dL - ABG Interpretation ABG results: ABG ABG pH 7.38 pH Units (7.32-7.45) 11/24/17 00:45 ABG pCO2 34 mmHg (35-45) L 11/24/17 00:45 ABG pO2 79 mmHg (85-104) L 11/24/17 00:45 ABG O2 Saturation 96 % (95-98) 11/24/17 00:45 PT/INR, D-dimer PT 11.2 Seconds (9.4-12.1) 11/23/17 15:57 Consult Discharge Plan - Plan Referrals: NONE,PCP [Primary Care Provider] -
[2017-11-25] MEDS: Budesonide/Formoterol 160/4.5 MDI IH SCH ×3 (10:58→21:58)
[2017-11-25] MEDS: Tiotropium 18 MCG inhalation IH SCH ×2 (10:58→11:14)
[2017-11-25] MEDS: Fluticasone Propionate Nasal 50 MCG/SPRAY BOTTLE NS SCH (11:59)
[2017-11-25] MEDS: Nicotine 14 MG PATCH.TD24 TD SCH (11:59)
[2017-11-25] MEDS: ATROVENT IH SCH ×2 (12:00→22:32)
[2017-11-25] MEDS: (Bifidobacterium Infantis [Align] 4 MG) PO SCH (12:00)
[2017-11-25] MEDS: Azithromycin 500 MG in D5% in Water 250 ML IVPB SCH (22:32)
[2017-11-25] MEDS: Melatonin 3 MG TABLET PO SCH (22:32)
[2017-11-26] MEDS: Ipratropium/Albuterol Neb 3 ML IH SCH ×2 (04:15→11:02)
[2017-11-26] MEDS: *HR* Enoxaparin 40 MG/0.4 ML SYRINGE SQ SCH (04:44)
[2017-11-26] MEDS: *HR* Morphine 2 MG/ML SYRINGE IVP PRN ×2 (04:44→12:03)
[2017-11-26 05:50] LABS: Basophils % 0.1 %; Hematocrit 38.7 % (35.3-44.9); Hemoglobin 12.9 g/dL (11.5-15.4); Immature Granulocytes % 1.8 % (0-4); Lymphocytes # 1.5 K/mcL (0.6-4.6); Lymphocytes % 7.7 %; Mean Corpuscular HGB Conc 33.3 g/dL (31.6-35.5); Mean Corpuscular Hemoglobin 31.2 pg (28.0-33.3); Mean Corpuscular Volume 93.5 fL (83.0-100.0); Mean Platelet Volume 9.3 fL (9.4-12.4); Monocytes # 0.6 K/mcL (0.0-1.3); Neutrophils # 16.8 K/mcL (1.6-8.9); Nucleated Red Blood Cells 0.1 /100 WBC (0); Platelet Count 363 K/mcL (140-400); Red Blood Count 4.14 M/mcL (3.82-4.97); Red Cell Distribution Width 12.8 % (11.5-14.5); Segmented Neutrophils % 87.4 %
[2017-11-26 06:16] LABS: Alanine Aminotransferase 23 Units/L (7-52); Albumin 3.8 g/dL (3.5-5.7); Albumin/Globulin Ratio 1.3 (1.1-2.2); Alkaline Phosphatase 68 Units/L (34-104); Aspartate Amino Transferase 13 Units/L (13-39); BUN/Creatinine Ratio 36 (6-26); Bilirubin,Total 0.3 mg/dL (0.3-1.0); Blood Urea Nitrogen 21 mg/dL (6-20); Calcium 8.9 mg/dL (8.6-10.3); Carbon Dioxide 24 mEq/L (23-29); Chloride 103 mEq/L (98-107); Glucose 152 mg/dL (70-105); Osmolality,Calculated 290 (280-300); Potassium 4.1 mEq/L (3.5-5.1); Sodium 137 mEq/L (136-145); Total Protein 6.8 g/dL (6.4-8.9); eGFR For African Americans > 60 (> 60); eGFR For Non-African Americans > 60 (> 60)
[2017-11-26 07:09] VITALS: BP 131/72
[2017-11-26] MEDS: (Bifidobacterium Infantis [Align] 4 MG) PO SCH (08:07)
[2017-11-26] MEDS: ATROVENT IH SCH (08:07)
[2017-11-26] MEDS: Aspirin Enteric Coated 81 MG Tablet PO SCH (08:09)
[2017-11-26] MEDS: Magic Mouthwash 10 ML UD Cup PO SCH (08:09)
[2017-11-26] MEDS: MethylPREDNISolone 40 MG/ML VIAL IVP SCH (08:10)
[2017-11-26] MEDS: Fluticasone Propionate Nasal 50 MCG/SPRAY BOTTLE NS SCH (08:10)
[2017-11-26] MEDS: Nicotine 14 MG PATCH.TD24 TD SCH (08:12)
[2017-11-26] MEDS: Tiotropium 18 MCG inhalation IH SCH (08:16)
--- NOTE | 2017-11-26 10:08 | Electrocardiograph Report ---
[address] [address] Test Date: 2017-11-23 Pat Name: Gina Connors Department: 102 Room: 3B45 Gender: F Agricultural Sales Representative: : 1960 Requested By: Tin Mullins Order Number: [id number] Reading MD: Marquis Ordonez MD Measurements Intervals [place] Rate: 104 P: 14 SC: 116 QRS: 12 QRSD: 94 T: 42 QT: 366 QTc: 427 Interpretive Statements SINUS TACHYCARDIA WITH SHORT SC INTERVAL INCOMPLETE RIGHT BUNDLE BRANCH BLOCK Electronically Signed On 11-26-2017 10:06:56 EST by Marquis Ordonez MD
--- NOTE | 2017-11-26 10:46 | Discharge Summary ---
Date of Encounter: 11/26/17 Time of Encounter: 10:40 - Discharge Diagnosis (1) Acute exacerbation of chronic obstructive airways disease Priority: Primary Status: Acute (2) HLD (hyperlipidemia) Priority: Secondary Status: Chronic Qualifiers: Hyperlipidemia type: pure hypercholesterolemia Qualified Code(s): E78.00 - Pure hypercholesterolemia, unspecified; E78.0 - Pure hypercholesterolemia (3) HTN (hypertension) Priority: Secondary Status: Chronic Qualifiers: Hypertension type: essential hypertension Qualified Code(s): I10 - Essential (primary) hypertension (4) Depression Priority: Secondary Status: Chronic Qualifiers: Depression Type: unspecified Qualified Code(s): F32.9 - Major depressive disorder, single episode, unspecified - Discharge Medications Prescriptions: Azithromycin [Zithromax Tri-Benson] 500 mg PO DAILY #2 tablet predniSONE [PredniSONE] See Taper PO TAPER #27 tablet Home Medications: Albuterol Sulfate [Ventolin Hfa] 2 puff IH Q4H PRN 08/02/17 [History] Aspirin [Lo-Dose Aspirin EC] 81 mg PO DAILY 08/02/17 [History] Atorvastatin [Lipitor] 40 mg PO HS 08/02/17 [History] Benzonatate [Tessalon] 100 mg PO BID PRN 08/02/17 [History] Bifidobacterium Infantis [Align] 4 mg PO DAILY 08/02/17 [History] DULoxetine [Cymbalta] 30 mg PO BID 08/02/17 [History] Fluticasone Propionate Nasal [Flonase] 2 spray NS DAILY 08/02/17 [History] Ibuprofen [Advil] 200 mg PO Q6H PRN 08/02/17 [History] Ipratropium [place] 2 spray NS BID 08/02/17 [History] Ipratropium/Albuterol Neb [Duoneb] 3 ml IH Q6HR PRN 08/02/17 [History] Losartan Potassium [Cozaar] 50 mg PO DAILY 08/02/17 [History] Melatonin 10 mg PO HS 08/02/17 [History] Montelukast [Singulair] 10 mg PO QPM 08/02/17 [History] Omeprazole [PriLOSEC] 40 mg PO DAILY 08/02/17 [History] Polyethylene Glycol 3350 [MiraLAX] 17 gm PO BID PRN 08/02/17 [History] Amitriptyline [Elavil] 50 mg PO HS 11/23/17 [History] Budesonide/Formoterol 160/4.5 [Symbicort 160/4.5] 2 puff IH BIDR 11/23/17 [ History] Tiotropium [Spiriva] 18 mcg IH 0700 11/23/17 [History] Azithromycin [Zithromax Tri-Benson] 500 mg PO DAILY #2 tablet 11/26/17 [Rx] predniSONE [PredniSONE] See Taper PO TAPER #27 tablet 11/26/17 [Rx] Allergies/Adverse Reactions: 3 Allergy/AdvReac Type Severity Reaction Status Date / Time lisinopril AdvReac Cough Verified 11/23/17 15:03 Procedures/tests Complete & Pending: Procedures Performed prior 72 hours Category Date Time Status CTA chest [CT angio chest] [CT] Stat Cat Scan 11/25/17 09:40 Completed Date of admission: 11/23/17 17:52 Primary care physician: PCP NONE Consults: 11/23/17 19:44 Consult to Occupational Therapy [CONS] Routine Comment: Evaluate, develop and implement POC Reason for Consult: Patient reports difficulty w/ambulation d/t SOB and dizziness. Please assess patient for ambulation strength, stability, safety, and possible home assistive needs for post-discharge planning. Consult to Sales Host [CONS] Routine Reason for SW Consult: Please assess patient for possible home needs for post -discharge planning. 11/23/17 19:46 Consult to Physical Therapy [CONS] Routine Comment: Evaluate, develop and implement POC Reason for Consult: Patient reports difficulty w/ambulation d/t SOB and dizziness. Please assess patient for ambulation strength, stability, safety, and possible home assistive needs for post-discharge planning. - Patient Status Disposition: Home, Self-Care Condition: Fair Overall status at discharge: patient is progressing back to baseline - Discharge Instructions Follow Up With: NONE,PCP [Primary Care Provider] - - Diet and Activity Activity: resume usual activities as tolerated Diet: regular diet Hospital course: Ms. Connors is a 57 year old female - Time Spent with Patient Total time spent providing and/or coordinating discharge services: - Constitutional Vitals: Temp Pulse Resp BP Pulse Ox 98.2 F 99 16 131/72 96 11/26/17 07:08 11/26/17 07:08 11/26/17 07:08 11/26/17 07:08 11/26/17 07:08 General appearance: Present: cooperative, mild distress (Respiratory), A&O X 3, pleasant, obese, answers questions appropriately Exam: GEN: NAD CVS: RRR. S1, S2, No m/r/g RESP: Diminished at the bases but no wheezes ABD: Soft, NT, ND, +BS EXT: No edema. 2+ DP. No rashes NEURO: Nonfocal
[2017-11-26] MEDS: Budesonide/Formoterol 160/4.5 MDI IH SCH (11:02)
== END 2017-11-26 14:10 | disposition home or self-care (01) ==
LOC: 3BNU 14:46 → EMEROO 14:46 → 3BNU 18:54
PROVIDERS: ADMIT Registered Nurse; ATTEND Registered Nurse